=== PATIENT | female | born 1995 | race Caucasian/White ===

== ENCOUNTER 2016-07-07 01:21 | Observation (INO) ==
[2016-07-07 12:08] VITALS: BP 131/79
--- NOTE | 2016-07-09 18:45 | OB/GYN Progress Note ---
Date of Encounter: 07/07/16 Time of Encounter: 01:00 - Assessment and Plan (1) 37 weeks gestation of Status: Acute (2) Uterine contractions during Status: Acute (3) False labor Status: Acute Patient was seen and evaluated by RN and sent home without cervical change with a reactive NST
== END 2016-07-07 04:37 | disposition home or self-care (01) ==
LOC: 1NENULAB
PROVIDERS: ADMIT Obstetrics & Gynecology; ATTEND Obstetrics & Gynecology

== ENCOUNTER 2016-07-07 18:20 | Observation (INO) ==
--- NOTE | 2016-07-07 19:44 | OB/GYN Progress Note ---
Date of Encounter: 07/07/16 Time of Encounter: 19:40 - Assessment and Plan (1) 37 weeks gestation of Current Visit: Yes Status: Acute (2) False labor Current Visit: Yes Status: Acute Evaluated for rupture of membranes nitrazine was positive, but patient did have intercourse last night. Ferning negative. Patient does have cervical change from last night will evaluate here if no continued cervical change after 1-1/2 hours will discharge home Subjective - Subjective Interval history: Patient 21-year-old 37 weeks presents to triage with statement of leaking clear fluid since this afternoon was occasional contraction. Patient states contractions are less than last night, but still present Antepartum ROS: loss of fluid, movement normal, contractions, no vaginal bleeding Objective - Vital Signs Vital Signs: Intake and Output 07/07/16 07/07/16 07/07/16 07:59 15:59 23:59 Other: Weight 59.2 kg Patient Weight 07/07/16 23:59 Weight 59.2 kg - Exam FHR: auscultation normal FHR comments: Baseline 125 Auscultation: bilateral: normal Abdomen: Present: normal appearance, soft, gravid Uterus: Present: normal (soft in between contractions ) Cervical dilation: 4.5/80/-3 per RN
== END 2016-07-07 20:15 | disposition home or self-care (01) ==
LOC: 1NENULAB
PROVIDERS: ADMIT Student in an Organized Health Care Education/Training Program; ATTEND Student in an Organized Health Care Education/Training Program

== ENCOUNTER 2016-07-08 19:18 | Inpatient (IN) ==
--- NOTE | 2016-07-08 18:27 | OB/GYN Progress Note ---
Date of Encounter: 07/08/16 Time of Encounter: 18:23 - Assessment and Plan (1) 37 weeks gestation of Current Visit: Yes Status: Acute (2) Uterine contractions during Current Visit: Yes Status: Acute Send urine for C/S PO hydration Serial cervical exams Vaginosis panel Urinalysis and reflex culture Expect to discharge home. Subjective - Subjective Principal diagnosis: Contractions Interval history: Ms Davis arrives to labor and delivery at 37.1 weeks gestation with c/o contractions and "losing her mucous plug". She states that her contractions are irregular and that she feels them in her stomach and lower abdomen. She states positive movement. She denies vaginal bleeding, headache, vision changes, and epigastric pain. Antepartum ROS: new complaints, movement normal, contractions (Vaginal discharge) Objective - Vital Signs Vital Signs: Intake and Output 07/08/16 07/08/16 07/08/16 07:59 15:59 23:59 Other: Weight 58.3 kg Patient Weight 07/08/16 23:59 Weight 58.3 kg - Exam FHR: auscultation normal, category 1 Auscultation: bilateral: normal Abdomen: Present: normal appearance, soft, gravid Uterus: Present: normal. Absent: tenderness Cervical dilation: 4-5 Cervix effacement: 75% station: Ballottable Comments: Per RN exam
[2016-07-08 18:39] LABS: Bilirubin,Urine Negative (Negative); Blood,Urine Small (Negative); Clarity,Urine Cloudy (Clear); Color,Urine Yellow (Yellow); Glucose,Urine (UA) Normal (Normal); Ketones,Urine Negative (Negative); Leukocyte Esterase,Urine Large (Negative); Nitrite,Urine Negative (Negative); Protein,Urine Negative (Neg-Trace); Urobilinogen,Urine Normal (Normal)
[2016-07-08 18:41] LABS: Bacteria,Urine Moderate per hpf (None-Few); Hyaline Casts,Urine None Seen per lpf (None-Few); RBC,Urine 0-3 per hpf (0-3); Squamous Epithelial Cell,Urine Many per lpf (None-Few); WBC,Urine 15-30 per hpf (0-3)
[~2016-07-08 19:18] MED LIST: 0.9 % Sodium Chloride 1,000 ML IVC SCH; Famotidine 20 MG/2 ML VIAL IVP PRN; Naloxone 0.4 MG/ML INJ IVP PRN; Ondansetron 4 MG/2 ML VIAL IVP PRN; Penicillin G Potassium 5,000,000 UNIT in D5% in Water (Mini-Bag+) 100 ML IVPB ONE
[2016-07-08 19:25] LABS: Basophils # 0.1 K/mcL (0.0-0.2); Basophils % 0.3 %; Eosinophils # 0.2 K/mcL (0.0-0.6); Eosinophils % 0.8 %; Hematocrit 29.7 % (35.3-44.9); Hemoglobin 9.5 g/dL (11.5-15.4); Immature Granulocytes % 0.8 % (0-4); Lymphocytes # 2.4 K/mcL (0.6-4.6); Lymphocytes % 13.7 %; Mean Corpuscular Hemoglobin 28.9 pg (28.0-33.3); Mean Corpuscular Volume 90.3 fL (83.0-100.0); Monocytes % 5.8 %; Nucleated Red Blood Cells 0.1 /100 WBC (0); Platelet Count 310 K/mcL (140-400); Red Blood Count 3.29 M/mcL (3.82-4.97); Red Cell Distribution Width 13.8 % (11.5-14.5); Segmented Neutrophils % 78.6 %
[2016-07-08 19:26] LABS: Gardnerella DNA ***DETECTED*** (Not Detect); Trichomonas DNA Not Detected (Not Detect)
[2016-07-08 19:27] LABS: Candida DNA Not Detected (Not Detect)
--- NOTE | 2016-07-08 19:28 | OB/GYN History & Physical ---
Date of Encounter: 07/08/16 Time of Encounter: 19:16 Assessment and Plan (1) 37 weeks gestation of Current visit: Yes Status: Acute Admit to labor and delivery for induction of labor due to prolonged deceleration. FSE and TOCO in place PCN prophylaxis Patient may have epidural upon request Expect vaginal delivery POC per consult with Dr Durán. (2) Uterine contractions during Current visit: Yes Status: Acute Admit to labor and delivery for induction of labor due to prolonged deceleration. FSE and TOCO in place PCN prophylaxis Patient may have epidural upon request Expect vaginal delivery POC per consult with Dr Durán. History of Present Illness Chief complaint: Contractions HPI: Ms. Davis is a 21 year old patient at 37/1 weeks that arrives to labor and delivery with complaints of contractions for 3 days. She has had intercourse in the past 48 hours. She is GBS positive and has no known drug allergies. She has a history of a 36 week delivery. Her blood type is A negative and she is rubella immune. There is no additional serology available. She was a transfer of care at 34/[address] Ivey. Patient was in triage on monitor when prolonged deceleration occurred after run of tachysystole. Intrauterine resuscitation performed. IV catheter placed and fluid bolus given. Dr Durán at bedside; AROM for large amount of clear fluid and FSE placed. Past Med Surg Social Fam HX - Past Medical History Medical history: no medical history Psychiatric history: anxiety, depression - Social History Smoking Status: Current every day smoker Packs per day: 1/2 pack Smokeless Tobacco Status: No Alcohol use: none Drug use: none - Family History Mother Adopted: No Living Status: Still Living Hx Family Cardiac Disorders: No Hx Family Respiratory Disorders: No Hx Family Cancer: No Hx Family GI Disorders: No Hx Family Endocrine Disorder: No Hx Family Neuromuscular Disorders: No Hx Family Neurologic Disorders: No Hx Family HEENT Disorders: No Hx Family Autoimmune Disorders: No Obstetrical History - Pregnancies : 2 Para: 1 Term: 0 : 1 Ab's: 0 Livin Medications and Allergies Colace 100 mg PO BID 07/07/16 [History] Ferrous Sulfate 325 mg PO BID 07/07/16 [History] One Tablet 1 tab PO DAILY 07/07/16 [History] Zoloft 50 mg PO DAILY 07/07/16 [History] Allergies No Known Allergies Allergy (Verified 07/08/16 18:11) Review of System OB All systems PM: reviewed and no additional remarkable complaints except as stated Exam - Constitutional Constitutional: well developed, well nourished, no acute distress, average body habitus - HEENT HEENT: Normocephaly, Mucus Membranes Moist - Neck Neck exam: full ROM - Lungs Respiratory exam: CTAB - Cardiovascular Cardiovascular exam: RRR, +S1, +S2 - Breasts Breast: bilateral: normal - Abdomen Abdomen: Present: bowel sounds normal, gravid, non tender - Extremities Extremities exam: normal capillary refill, normal inspection, radial pulses palpable and symetrical Deep Tendon Reflex Grade: 2+ Normal - Vulva Vulva: bilateral: normal - Vagina Vagina: Present: normal moisture, discharge (Mucoid with odor) - Cervix Dilation: 5 (Per Dr [place]) Effacement: 70 (Per [place]) Station: -2 - Uterus Uterus exam: Present: normal size, normal contour - Adnexa Adnexa: bilateral: normal - Anus/Rectum Anus/Rectum: Present: normal perianal skin Results Abnormal lab results Urine Clarity Cloudy (Clear) A 07/08/16 18:35 Urine Blood Small (Negative) H 07/08/16 18:35 Ur Leukocyte Esterase Large (Negative) H 07/08/16 18:35 Urine Microscopic WBC 15-30 per hpf (0-3) H 07/08/16 18:35 Ur Squamous Epith Cells Many per lpf (None-Few) H 07/08/16 18:35 Urine Bacteria Moderate per hpf (None-Few) H 07/08/16 18:35 Ur Culture Indicated? YES (NO) A 07/08/16 18:35 All other labs normal. - VTE Reasons for not Prescribing Prophylaxis: Treatment not Indicated - Low risk for VTE
[2016-07-08] MEDS ORDERED: Metoclopramide 10 MG/2 ML VIAL IVP PRN (19:29)
[2016-07-08] MEDS ORDERED: Ringers Solution, Lactated 1,000 ML ONE ×2 (20:13→21:46)
--- NOTE | 2016-07-08 20:26 | Anesthesia Evaluation PreOp ---
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 No problems with general anesthesia.) : Yes Alcohol Use: none Drug use: none Medications and Allergies Colace 100 mg PO BID 07/07/16 [History] Ferrous Sulfate 325 mg PO BID 07/07/16 [History] One Tablet 1 tab PO DAILY 07/07/16 [History] Zoloft 50 mg PO DAILY 07/07/16 [History] Allergies No Known Allergies Allergy (Verified 07/08/16 18:11) - Meds/Allergy Pre-op Review Medications Reviewed: Yes Allergies Reviewed: No Beta Blockers on Current Med List: No Anesthesia Results - Labs 07/08/16 19:10 Anesthesia Exam vss, FHTs stable Height: 5'2" Weight: 53 kg NPO (# of Hours): >8 Pain Scale: 5 Pain Scale Used: Numeric (1 - 10) - HEENT Pupil (Motor): Pupils equal Mallampati: II Teeth: Normal Oral Opening: Greater than 3 - COMMODITY LOAN CLERK LOC: Oriented COMMODITY LOAN CLERK Motor: Normal RUE, Normal LUE, Normal RLE, Normal LLE, Normal Face COMMODITY LOAN CLERK Sensory: Normal: RUE, LUE, RLE, LLE, Face - Cardiac Rhythm: Regular - Pulmonary Breath Sounds: bilateral Clear Respiratory Effort: Symmetrical Anesthesia Assess/Plan ASA Score: 2 Modified [place] Scale for Level of Consciousness: Cooperative, oriented, and tranquil Anesthetic Plan: Regional Monitoring Plan: Standard Monitors
[2016-07-08] MEDS ORDERED: Bupivacaine-MPF 0.25% 10 ML VIAL EP ONE (20:28)
[2016-07-08] MEDS ORDERED: *HR* FentaNYL (PF) 100 MCG/2 ML VIAL EP ONE (20:28)
[2016-07-08] MEDS ORDERED: Epidural Premix (fent/bupiv) 110 ML EP SCH (20:30)
[2016-07-08] MEDS ORDERED: *HR* FentaNYL (PF) 100 MCG/2 ML VIAL ONE (20:33)
[2016-07-08] MEDS ORDERED: Bupivacaine-MPF 0.25% 10 ML VIAL ONE (20:33)
[2016-07-08] MEDS ORDERED: Epidural Premix (fent/bupiv) 110 ML EP ONE (20:34)
--- NOTE | 2016-07-08 21:11 | Anesthesia Procedures ---
Date of Encounter: 07/08/16 Time of Encounter: 20:40 Procedures: Anesthesia - Epidural/Spinal Patient ID/Chart reviewed: Yes Patient examined: Yes OB Eval: Gestational age: 37 OB Eval: : 2 OB Eval: Hx Para: 1 OB Eval: Dilated at (cm): 6 OB Eval: Contractions: Non-stressed pattern Consent Obtained: Yes Supplemental Oxygen: None/Room Air Site Prep: Aseptic Technique, Sterile prep and drape, Povidone-Iodine 1% Patient position: upright Local Anesthetic: Lidocaine 1% Amount of Local Anesthetic used: 3 Touhy Needle Gauge: 18 Touhy Needle Depth (cm): 5 Catheter Depth at Skin (cm): 14 Test Dose (1.5% Lido + Epi): Volume given (mls): 3 Test Dose Result: Negative Loading Dose: 0.25% Marcaine (mls): 8 Loading Dose: Fentanyl (mcg): 100 Loading Dose Administered: Thru Catheter Infusion Med: 0.125% Bupivacaine w/ 2 mcg/ml Fentanyl Infusion Rate (mls/hr): [address]: Tegaderm, Tape Interspace Used: L3-L4 Loss of Resistance (KB): Yes Blood: No CSF: No Paresthesia: No Vitals + FHT's: 3 Vital Signs Time 2039 2044 2049 2054 2099 2104 BP 117/80 120/78 122/71 117/71 112/67 109/61 Pulse 120 115 113 102 101 103 FHTs 130 130 130 130 130 130
[2016-07-08] MEDS ORDERED: Oxytocin 20 units/ LR 1000 mL 20 UNIT/1,000 ML BAG IVC SCH (22:45)
[2016-07-08] MEDS: Penicillin G Potassium 2,500,000 UNIT in D5% in Water 100 ML IVPB SCH (23:22)
[2016-07-08] MEDS ORDERED: Nicotine 14 MG PATCH.TD24 TD SCH (23:45)
[2016-07-09] MEDS ORDERED: *HR* FentaNYL (PF) 100 MCG/2 ML VIAL ONE (03:04)
[2016-07-09] MEDS ORDERED: Bupivacaine-MPF 0.25% 10 ML VIAL ONE (03:04)
[2016-07-09] MEDS: Penicillin G Potassium 2,500,000 UNIT in D5% in Water 100 ML IVPB SCH (03:26)
[2016-07-09] MEDS ORDERED: Epidural Premix (fent/bupiv) 110 ML EP ONE (05:47)
--- NOTE | 2016-07-09 06:18 | OB/GYN Procedure Note ---
Delivery - Delivery Date: 07/09/16 Provider: Bhavin Durán Intrapartum events: other(please specify) (prolonged decels on presentation) Delivery induction: AROM, oxytocin Delivery augmentation: rupture of membranes - Infant (s) Infant A Delivery Date: 07/09/16 Infant Delivery Time: 06:01 Presentation: vertex Position: SUBHASH Route of delivery: Gender: Female Viability: Viable Pounds: 5 Ounces: 14 at 1 minute: 8 at 5 mins: 9 Shoulder Dystocia: not encountered Specimens collected: cord blood Placenta: spontaneous Cord: 3 umbilical vessels - Repair Episiotomy: none Laceration Description: Periurethral - Complications Delivery complications: none - Disposition Mom disposition: stable in LDR [place] disposition: stable in LDR (Pt s/p of liveborn female.)
[2016-07-09] MEDS ORDERED: Measles/Mumps/Rubella Vacc 0.5 ML VIAL SQ PRN (08:46)
[2016-07-09] MEDS ORDERED: Rho Immune Globulin 1,500 UNIT SYRINGE IM PRN (08:46)
[2016-07-09] MEDS ORDERED: Oxytocin 20 units/ LR 1000 mL 20 UNIT/1,000 ML BAG IVC SCH (08:46)
[2016-07-09] MEDS ORDERED: Acetaminophen 325 MG TABLET PO PRN (08:46)
[2016-07-09] MEDS ORDERED: Prenatal Vit/FA 1 EACH TABLET PO SCH (09:00)
[2016-07-10 04:01] LABS: Basophils # 0.1 K/mcL (0.0-0.2); Basophils % 0.4 %; Eosinophils # 0.2 K/mcL (0.0-0.6); Hemoglobin 8.4 g/dL (11.5-15.4); Immature Granulocytes % 0.5 % (0-4); Lymphocytes # 3.1 K/mcL (0.6-4.6); Lymphocytes % 17.3 %; Mean Corpuscular HGB Conc 32.3 g/dL (31.6-35.5); Mean Corpuscular Hemoglobin 29.5 pg (28.0-33.3); Mean Corpuscular Volume 91.2 fL (83.0-100.0); Mean Platelet Volume 11.5 fL (9.4-12.4); Monocytes % 5.6 %; Neutrophils # 13.4 K/mcL (1.6-8.9); Platelet Count 260 K/mcL (140-400); Red Blood Count 2.85 M/mcL (3.82-4.97); Red Cell Distribution Width 14.4 % (11.5-14.5); Segmented Neutrophils % 75.2 %
--- NOTE | 2016-07-10 08:21 | Discharge Summary ---
Date of Encounter: 07/10/16 Time of Encounter: 08:20 - Discharge Diagnosis (1) Vaginal delivery Priority: Primary Status: Acute Comments: continue routine care discharge home today follow up with Dr. Ivey in 4-6 weeks (2) Bacterial vaginitis Priority: Secondary Status: Acute Comments: Will start Flagyl 500mg po BID x 7 days. (3) anemia Priority: Secondary Status: Acute Comments: Continue ferrous sulfate daily - Discharge Medications Prescriptions: Ibuprofen [Motrin] 600 mg PO Q6HR PRN #60 tab PRN Reason: Pain Ferrous Sulfate 325 mg PO DAILY #30 tablet MetroNIDAZOLE [Flagyl] 500 mg PO BID #14 tablet Home Medications: Ferrous Sulfate 325 mg PO BID 07/07/16 [History] One Tablet 1 tab PO DAILY 07/07/16 [History] Zoloft 50 mg PO DAILY 07/07/16 [History] Ferrous Sulfate 325 mg PO DAILY #30 tablet 07/10/16 [Rx] Ibuprofen [Motrin] 600 mg PO Q6HR PRN #60 tab 07/10/16 [Rx] MetroNIDAZOLE [Flagyl] 500 mg PO BID #14 tablet 07/10/16 [Rx] Vit/FA 1 each PO DAILY tablet 07/10/16 [Rx] Sertraline [Zoloft] 50 mg PO DAILY tablet 07/10/16 [Rx] Allergies/Adverse Reactions: Allergies No Known Allergies Allergy (Verified 07/08/16 18:11) Data Procedures and tests throughout hospitalization: Laboratory Tests 07/08/16 07/08/16 07/08/16 18:20 18:35 19:10 WBC 17.8 H RBC 3.29 L Hgb 9.5 L Hct 29.7 L MCV 90.3 MCH 28.9 MCHC 32.0 RDW 13.8 Plt Count 310 MPV 11.0 Immature Gran % 0.8 Seg Neutrophils % 78.6 Lymphocytes % 13.7 Monocytes % 5.8 Eosinophils % 0.8 Basophils % 0.3 Neutrophils # 14.0 H Lymphocytes # 2.4 Monocytes # 1.0 Eosinophils # 0.2 Basophils # 0.1 Nucleated RBCs/100 WBC 0.1 H Urine Color Yellow Urine Clarity Cloudy A Urine pH 7.0 Ur Specific [place] 1.010 Urine Protein Negative Urine Glucose (UA) Normal Urine Ketones Negative Urine Blood Small H Urine Nitrite Negative Urine Bilirubin Negative Urine Urobilinogen Normal Ur Leukocyte Esterase Large H Urine Microscopic RBC 0-3 Urine Microscopic WBC 15-30 H Ur Squamous Epith Cells Many H Urine Bacteria Moderate H Hyaline Casts None Seen Ur Culture Indicated? YES A Giselle species DNA Not Detected Gardnerella DNA Probe DETECTED A Hep Bs Antigen Trichomonas DNA Probe Not Detected Baby's Blood Type Mother's Blood Type Rhogam Indicated 07/09/16 07/09/16 07/10/16 06:25 06:25 03:13 WBC 17.8 H RBC 2.85 L Hgb 8.4 L Hct 26.0 L MCV 91.2 MCH 29.5 MCHC 32.3 RDW 14.4 Plt Count 260 MPV 11.5 Immature Gran % 0.5 Seg Neutrophils % 75.2 Lymphocytes % 17.3 Monocytes % 5.6 Eosinophils % 1.0 Basophils % 0.4 Neutrophils # 13.4 H Lymphocytes # 3.1 Monocytes # 1.0 Eosinophils # 0.2 Basophils # 0.1 Nucleated RBCs/100 WBC Urine Color Urine Clarity Urine pH Ur Specific Tillar Urine Protein Urine Glucose (UA) Urine Ketones Urine Blood Urine Nitrite Urine Bilirubin Urine Urobilinogen Ur Leukocyte Esterase Urine Microscopic RBC Urine Microscopic WBC Ur Squamous Epith Cells Urine Bacteria Hyaline Casts Ur Culture Indicated? Giselle species DNA Gardnerella DNA Probe Hep Bs Antigen Nonreactive Trichomonas DNA Probe Baby's Blood Type A RH NEGATIVE Mother's Blood Type A RH NEGATIVE Rhogam Indicated NO Labs on day of discharge: Labs from last 24 hours 07/10/16 07/09/16 07/09/16 03:13 06:25 06:25 WBC 17.8 H RBC 2.85 L Hgb 8.4 L Hct 26.0 L MCV 91.2 MCH 29.5 MCHC 32.3 RDW 14.4 Plt Count 260 MPV 11.5 Immature Gran % 0.5 Seg Neutrophils % 75.2 Lymphocytes % 17.3 Monocytes % 5.6 Eosinophils % 1.0 Basophils % 0.4 Neutrophils # 13.4 H Lymphocytes # 3.1 Monocytes # 1.0 Eosinophils # 0.2 Basophils # 0.1 Hep Bs Antigen Nonreactive Baby's Blood Type A RH NEGATIVE Mother's Blood Type A RH NEGATIVE Rhogam Indicated NO Date of admission: 07/08/16 19:18 Primary care physician: PCP NO Consults: 07/09/16 08:46 Consult to Cad Designer [CONS] Routine Comment: Vaginal delivery, consult needed Discharging clinician: Natalie Crawford Anticipated date of discharge: 07/10/16 - Patient Status Disposition: Home, Self-Care Condition: Good Functional capacity at discharge: independent ambulation - Discharge Instructions Follow Up With: NO,PCP [Primary Care Provider] - Bindu Ivey MD [Partnered Physician] - - Diet and Activity Activity: increase activity as tolerated Diet: regular diet Hospital Course [employer] Time Attestation: Total time spent providing and/or coordinating discharge services: Time Spent: Less than 30 minutes Exam - Constitutional Vitals: Temp Pulse Resp BP Pulse Ox 97.6 F 76 14 110/68 98 07/10/16 03:50 07/10/16 03:50 07/10/16 03:50 07/10/16 03:50 07/10/16 03:50 General appearance IM: A&O X 3, pleasant, answers questions appropriately - Respiratory Respiratory exam: Present: CTAB - Cardiovascular Cardiovascular exam IM: Present: RRR, +S1, +S2 - GI/Abdominal GI/Abdominal exam IM: normal bowel sounds - Uterine Tone: Firm Uterus Position: 2 Fingers Below Umbilicus, Midline - Extremities Exam Extremities exam IM: Present: full ROM, normal capillary refill, normal inspection - Neurological Exam Neurological exam: alert, oriented X3, reflexes normal - VTE Reasons for not Prescribing Prophylaxis: Treatment not Indicated - Low risk for VTE
[2016-07-10 08:26] VITALS: BP 104/69
== END 2016-07-10 11:30 | disposition home or self-care (01) | DRG 560 ==
LOC: 1NENULAB → 1NENUOBS 07-09 09:53
PROVIDERS: ADMIT Obstetrics & Gynecology; ATTEND Obstetrics & Gynecology

== ENCOUNTER → 2019-05-22 22:08 | Observation (INO) ==
[2019-05-22 21:13] LABS: Bilirubin,Urine Negative (Negative); Blood,Urine Negative (Negative); Clarity,Urine Cloudy (Clear); Color,Urine Yellow (Yellow); Glucose,Urine (UA) Normal (Normal); Ketones,Urine Negative (Negative); Leukocyte Esterase,Urine Moderate (Negative); Nitrite,Urine Negative (Negative); PH,Urine 7.5 pH Units (5.0-8.0); Protein,Urine Negative (Neg-Trace); Specific Gravity,Urine 1.013 (1.010-1.025); Urobilinogen,Urine Normal (Normal)
[2019-05-22 21:16] LABS: Bacteria,Urine None Seen per hpf (None-Few); Hyaline Casts,Urine None Seen per lpf (None-Few); RBC,Urine 0-3 per hpf (0-3); Squamous Epithelial Cell,Urine Moderate per lpf (None-Few); WBC,Urine 15-30 per hpf (0-3)
== END | disposition home or self-care (01) ==
LOC: 1NENULAB
PROVIDERS: ADMIT Registered Nurse; ATTEND Registered Nurse

== ENCOUNTER → 2019-06-10 01:48 | Observation (INO) | END | disposition home or self-care (01) | LOC: 1NENULAB | PROVIDERS: ADMIT Registered Nurse; ATTEND Registered Nurse ==

== ENCOUNTER 2019-06-11 06:00 | Inpatient (IN) ==
[2019-06-11] MEDS ORDERED: Lidocaine 1% 20 ML MDV INFILT PRN (06:22)
[2019-06-11] MEDS ORDERED: miSOPROStoL 25 MCG TABLET VG PRN (06:22)
[2019-06-11] MEDS ORDERED: Ondansetron 4 MG/2 ML VIAL IVP PRN (06:22)
[2019-06-11] MEDS ORDERED: Metoclopramide 10 MG/2 ML VIAL IVP PRN (06:22)
[2019-06-11] MEDS ORDERED: *HR* FentaNYL (PF) 100 MCG/2 ML VIAL IVP PRN (06:22)
[2019-06-11] MEDS ORDERED: Famotidine 20 MG/2 ML VIAL IVP PRN (06:22)
[2019-06-11] MEDS ORDERED: Naloxone 0.4 MG/ML INJ IVP PRN (06:22)
[2019-06-11] MEDS ORDERED: Ringers Solution, Lactated 1,000 ML IVC SCH (06:30)
[2019-06-11] MEDS ORDERED: Ringers Solution, Lactated 1,000 ML IV.SOLN ONE ×2 (07:33→15:13)
[2019-06-11 14:16] LABS: Basophils % 0.3 %; Eosinophils # 0.1 K/mcL (0.0-0.6); Hemoglobin 10.6 g/dL (11.5-15.4); Immature Granulocytes % 0.8 % (0-4); Lymphocytes # 2.5 K/mcL (0.6-4.6); Lymphocytes % 21.4 %; Mean Corpuscular HGB Conc 31.2 g/dL (31.6-35.5); Mean Corpuscular Hemoglobin 29.4 pg (28.0-33.3); Mean Corpuscular Volume 94.2 fL (83.0-100.0); Mean Platelet Volume 10.6 fL (9.4-12.4); Monocytes # 0.6 K/mcL (0.0-1.3); Monocytes % 5.4 %; Neutrophils # 8.2 K/mcL (1.6-8.9); Platelet Count 307 K/mcL (140-400); Red Blood Count 3.61 M/mcL (3.82-4.97); Red Cell Distribution Width 18.6 % (11.5-14.5); Segmented Neutrophils % 71.1 %; White Blood Count 11.6 K/mcL (4.3-11.1)
[2019-06-11] MEDS ORDERED: Epidural Premix (fent/bupiv) 110 ML EP ONE (15:08)
[2019-06-11] MEDS ORDERED: Ropivacaine/PF 0.2% 20 ML VIAL ONE (15:10)
[2019-06-11] MEDS ORDERED: *HR* FentaNYL (PF) 100 MCG/2 ML VIAL ONE (15:10)
[2019-06-11] MEDS ORDERED: Epidural Premix (fent/bupiv) 110 ML BAG EP ONE (15:13)
[2019-06-11] MEDS ORDERED: Oxytocin 20 units/ LR 1000 mL 20 UNIT/1,000 ML BAG IVC SCH (16:00)
[2019-06-11] MEDS ORDERED: Oxytocin 20 units/ LR 1000 mL 20 UNIT/1,000 ML BAG IVC ONE (16:20)
[2019-06-11] MEDS ORDERED: EPHEDrine 50 MG/ML VIAL IVP PRN (16:37)
[2019-06-11] MEDS ORDERED: Epidural Premix (fent/bupiv) 110 ML EP SCH (16:45)
[2019-06-11] MEDS ORDERED: Acetaminophen 325 MG TABLET PO PRN (22:14)
[2019-06-11] MEDS ORDERED: Rho Immune Globulin 1,500 UNIT SYRINGE IM PRN (22:14)
[2019-06-11] MEDS ORDERED: Measles/Mumps/Rubella Vacc 0.5 ML VIAL SQ PRN (22:14)
[2019-06-11] MEDS: Oxytocin 20 units/ LR 1000 mL 20 UNIT/1,000 ML BAG IVC SCH (22:26)
[2019-06-11] MEDS: Ibuprofen 600 MG TABLET PO PRN (23:38)
[2019-06-12 00:10] LABS: Amphetamine Screen,Urine Negative ng/mL (Cutoff=1000); Barbiturate Screen,Urine Negative ng/mL (Cutoff=200); Benzodiazepines Screen,Urine Negative ng/mL (Cutoff=200); Cannabinoid Screen,Urine Negative ng/mL (Cutoff = 50); Cocaine Screen,Urine Negative ng/mL (Cutoff= 300); Opiate Screen,Urine Negative ng/mL (Cutoff=300); Phencyclidine Screen,Urine Negative ng/mL (Cutoff=25)
[2019-06-12] MEDS: Oxytocin 20 units/ LR 1000 mL 20 UNIT/1,000 ML BAG IVC SCH (05:42)
[2019-06-12] MEDS: Ibuprofen 600 MG TABLET PO PRN (06:03)
[2019-06-12 08:04] VITALS: BP 97/66
[2019-06-12] MEDS ORDERED: Prenatal Vit/FA 1 EACH TABLET PO SCH ×2 (09:00)
[2019-06-12 09:40] LABS: Basophils % 0.3 %; Eosinophils % 0.8 %; Hematocrit 31.2 % (35.3-44.9); Immature Granulocytes % 0.6 % (0-4); Lymphocytes % 16.3 %; Mean Corpuscular HGB Conc 32.1 g/dL (31.6-35.5); Mean Corpuscular Hemoglobin 30.1 pg (28.0-33.3); Mean Platelet Volume 10.5 fL (9.4-12.4); Monocytes % 7.1 %; Platelet Count 277 K/mcL (140-400); Red Blood Count 3.32 M/mcL (3.82-4.97); Red Cell Distribution Width 18.6 % (11.5-14.5); Segmented Neutrophils % 74.9 %
[2019-06-12 09:41] LABS: Basophils # 0.1 K/mcL (0.0-0.2); Eosinophils # 0.1 K/mcL (0.0-0.6); Lymphocytes # 2.4 K/mcL (0.6-4.6); Monocytes # 1.1 K/mcL (0.0-1.3); Neutrophils # 11.2 K/mcL (1.6-8.9)
== END 2019-06-12 16:28 | disposition home or self-care (01) | DRG 560 ==
LOC: 1NENULAB 06:10 → 1NENUOBS 22:42 → UNDODISIN 06-12 12:26
PROVIDERS: ADMIT Student in an Organized Health Care Education/Training Program; ATTEND Student in an Organized Health Care Education/Training Program